=== PATIENT | female | born 2000 | race Caucasian/White ===

== ENCOUNTER 2020-04-21 09:45 | Emergency (ER) | payer BC ==
[~2020-04-21] VITALS: Ht 165.1 cm; Wt 90.9 kg
[2020-04-21] MEDS ORDERED: ZOFRAN ODT4 MG PO (12:23)
[2020-04-21 12:40] VITALS: BP 102/57
== END 2020-04-21 12:50 | disposition home or self-care (01) ==
LOC: ED 09:45
DX: K29.70 Gastritis, unspecified, without bleeding (principal)
CPT/HCPCS: J2405; J7030

== ENCOUNTER 2022-09-19 17:48 | Emergency (ER) | payer BC ==
[~2022-09-19] VITALS: Ht 165.1 cm; Wt 132.8 kg
[~2022-09-19 17:48] MED LIST: ZOFRAN ODT4 MG PO
[2022-09-19] MEDS ORDERED: PRENATAL FORMU1 EAC2 PO (18:10)
[2022-09-19] MEDS ORDERED: B6 PO (18:11)
[2022-09-19 18:56] LABS: BASO # 0.03 K/mm3 (0.02-0.10); EOS # 0.04 K/mm3 (0.04-0.40); EOS % 0.3 % (1.0-5.0); HEMATOCRIT 43.9 % (37.0-47.0); LYMPH# 2.45 K/mm3 (1.50-4.00); MEAN CELL VOLUME 87 fl (78-100); MEAN CORPUSCULAR HEMOGLOBIN 30 pg (27-31); MEAN CORPUSCULAR HGB CONC 34 g/dL (33-37); PLATELET COUNT 297 K/mm3 (130-400); RED BLOOD COUNT 5.06 M/mm3 (4.10-5.30); WHITE BLOOD COUNT 13.8 K/mm3 (4.8-10.8)
[2022-09-19 19:06] LABS: POTASSIUM 3.6 mmol/L (3.5-5.1)
[2022-09-19 19:07] LABS: CALCIUM 9.9 mg/dL (8.3-10.5)
[2022-09-19] MEDS ORDERED: ZOFRAN ODT4 MG PO (20:23)
[2022-09-19 20:58] VITALS: BP 132/81
[2022-09-20 05:58] LABS: URINE APPEARANCE CLEAR; URINE BILIRUBIN NEGATIVE (NEGATIVE); URINE BLOOD NEGATIVE (NEGATIVE); URINE COLOR YELLOW; URINE GLUCOSE NEGATIVE (NEGATIVE); URINE KETONE 3+ (NEGATIVE); URINE LEUKOCYTE ESTERASE NEGATIVE (NEGATIVE); URINE MUCUS PRESENT (NOT PRESENT); URINE NITRATE NEGATIVE (NEGATIVE); URINE PROTEIN(semi-quant) TRACE (NEGATIVE); URINE UROBILINOGEN NORMAL (NORMAL)
[2022-09-25] MEDS ORDERED: PROMETHAZINE12.5 M5 (15:33)
== END 2022-09-19 20:58 | disposition home or self-care (01) ==
LOC: ED 17:48
PROVIDERS: Family Medicine
DX: O21.9 Vomiting of pregnancy, unspecified (principal); Z3A.01 Less than 8 weeks gestation of pregnancy; Z28.310 Unvaccinated for COVID-19
CPT/HCPCS: J7030

== ENCOUNTER 2024-06-13 11:45 | Emergency (ER) | payer OTHER ==
[~2024-06-13] VITALS: Ht 167.6 cm; Wt 141.6 kg
[~2024-06-13 11:45] MED LIST changes: -ENOXAPARIN40 MG/0.1 SQ
[2024-06-13 12:09] LABS: BASO # 0.04 K/mm3 (0.02-0.10); EOS # 0.15 K/mm3 (0.04-0.40); EOS % 1.1 % (1.0-5.0); HEMATOCRIT 31.5 % (37.0-47.0); HEMOGLOBIN 9.7 g/dL (12.5-16.0); LYMPH# 1.82 K/mm3 (1.50-4.00); MEAN CELL VOLUME 82 fl (78-100); MEAN CORPUSCULAR HEMOGLOBIN 25 pg (27-31); MEAN CORPUSCULAR HGB CONC 31 g/dL (33-37); MONO # 0.73 K/mm3 (0.20-0.80); NEU # 10.93 K/mm3 (1.40-6.50); PLATELET COUNT 370 K/mm3 (130-400); RED BLOOD COUNT 3.85 M/mm3 (4.10-5.30); RED CELL DISTRIBUTION WIDTH 15.6 % (11.5-14.5); WHITE BLOOD COUNT 13.7 K/mm3 (4.8-10.8)
[2024-06-13 12:14] LABS: ALBUMIN 3.2 g/dL (3.5-5.0); SODIUM 140 mmol/L (136-145)
[2024-06-13 12:15] LABS: CALCIUM 8.8 mg/dL (8.3-10.5)
[2024-06-13 12:16] LABS: GLUCOSE 115 mg/dL (65-105)
[2024-06-13 12:17] LABS: TOTAL PROTEIN 6.2 g/dL (6.4-8.3)
[2024-06-13 12:18] LABS: CARBON DIOXIDE 21 mmol/L (22-29); TOTAL BILIRUBIN 0.2 mg/dL (0.2-1.2)
[2024-06-13 12:22] LABS: AST-SGOT 15 U/L (5-34)
[2024-06-13 12:23] LABS: ALT/SGPT 14 U/L (0-55); D-DIMER 3.27 mg/L FEU (0.15-0.50)
[2024-06-13 12:30] LABS: TROPONIN-I < 0.030 ng/mL (0.00-0.033)
[2024-06-13] MEDS ORDERED: Sulfamethoxazole/Trimethoprim 800-160 MG TAB PO ONE (12:45)
[2024-06-13] MEDS ORDERED: Amoxicillin/Clavulanate K+ 875/125 MG TAB PO ONE (12:45)
[2024-06-13] MEDS ORDERED: Iohexol 350 - 100 ML VIAL IV ONE (12:56)
[2024-06-13] MEDS ORDERED: Doxycycline Monohydrate 100 MG CAP PO ONE (13:15)
[2024-06-13 13:26] VITALS: BP 121/69
[2024-06-13] MEDS ORDERED: ENOXAPARIN40 MG/0.1 SQ (17:01)
== END 2024-06-13 13:30 | disposition home or self-care (01) ==
LOC: ED 11:45
PROVIDERS: Family Medicine
DX: O99.893 Other specified diseases and conditions complicating puerperium (principal); M79.89 Other specified soft tissue disorders; O90.81 Anemia of the puerperium; R79.1 Abnormal coagulation profile; D72.829 Elevated white blood cell count, unspecified; R00.0 Tachycardia, unspecified
CPT/HCPCS: J7120; Q9967

== ENCOUNTER → 2024-06-13 | Outpatient (CLI) | payer OTHER ==
[~2024-06-13] VITALS: Ht 167.6 cm; Wt 141.6 kg
[~2024-06-13] MED LIST changes: +B6 PO; +ENOXAPARIN40 MG/0.1 SQ; +PRENATAL FORMU1 EAC2 PO; +PROMETHAZINE12.5 M5
[2024-06-13 19:23] VITALS: BP 139/76
== END ==
LOC: AMSURD 17:11
DX: I82.401 Acute embolism and thrombosis of unspecified deep veins of right lower extremity (principal)
CPT/HCPCS: J1650